=== PATIENT | female | born 1945 | race Caucasian/White ===

== ENCOUNTER 2020-06-20 07:25 | Day surgery (SDC) | payer MEDICARE, BC ==
[~2020-06-20] VITALS: Ht 162.6 cm; Wt 86.4 kg
--- NOTE | ~2020-06-20 | OR ---
[facility] [address] [place], [place] [address] Draft DATE OF OPERATION: 06/20/2020 SURGEON: Yamileth Rapp MD PREOPERATIVE DIAGNOSES: 1. Postmenopausal bleeding. 2. Uterovaginal prolapse. POSTOPERATIVE DIAGNOSES: 1. Postmenopausal bleeding. 2. Uterovaginal prolapse. 3. Vaginal granulation tissue. PROCEDURES: Hysteroscopy, cauterization of granulation tissue. ANESTHESIA: Spinal with IV sedation. ESTIMATED BLOOD LOSS: Minimal. DRAINS: None. INDICATIONS AND FINDINGS: The patient is a 75-year-old female, who has had uterovaginal prolapse for quite some time and had been doing well with the pessary that was having recurrent bleeding. During the course of her evaluation, she was found to have a pessary ulcer. Because of the persistence of bleeding, further evaluation was done. Ultrasound showed slightly thickened irregular endometrium and there was concern for a polyp. It was felt that further evaluation of the endometrium was needed before her bleeding could be blamed on the granulation tissue. At the time of surgery, she has significant uterovaginal prolapse. The cystocele is a grade 4. The cervix presents within 1 cm of the hymenal ring. She also has a rectocele. The endometrial cavity sounded to 8 cm. The cavity was completely atrophic. There was granulation tissue behind the cervix on the upper aspect of the vagina. DESCRIPTION OF PROCEDURE: The patient was prepped and draped in the dorsal lithotomy position. A weighted PATIENT NAME: ASHA,SOPHIE JOSE OPERATIVE REPORT DATE OF : 45 REPORT #: [id number] PHYSICIAN: YAMILETH RAPP MD PCP: PAULA RENAE PAC REPORT IS CONFIDENTIAL AND NOT TO BE RELEASED WITHOUT AUTHORIZATION [address] [address] Draft speculum was placed and the anterior lip of the cervix was visualized and grasped with a single-tooth tenaculum. Cavity was sounded to 8 cm. The endocervical canal was then dilated to #8 dilator. Following this, MyoSure device was placed. The cavity was completely atrophic and there was nothing to remove. Following this, hysteroscopy was complete. She did have granulation tissue behind the cervix on the vaginal wall and this was bleeding even during the surgery. Cautery was done and the granulation tissue treated with the cautery. The tenaculum was removed and there was no evidence of ongoing bleeding. The instruments were removed and the patient was taken to the recovery room in good condition. Yamileth Rapp MD PJW/MODL /[id number] cc: Paula Renae PA-C Copies: ~ PATIENT NAME: SOPHIE BARRY OPERATIVE REPORT DATE OF : 45 REPORT #: [id number] PHYSICIAN: YAMILETH RAPP MD PCP: PAULA RENAE PAC REPORT IS CONFIDENTIAL AND NOT TO BE RELEASED WITHOUT AUTHORIZATION
[~2020-06-20 07:25] MED LIST: ASPIR-LOW81 MG PO; ATENOLOL50 MG PO; LEVOXYL50 MCG PO; LOSARTAN POTASS25 MG PO; OSTERA TABLET1 EACH PO; PROBIOTIC1 EAC3 PO; SIMVASTATIN20 MG PO; VIT C-ROSE HIP500 MG PO
--- NOTE | 2020-06-20 09:54 | NUR ---
ICED WATER GIVEN. CALL LIGHT WITHIN REACH. PAGED.
[2020-06-20] MEDS ORDERED: HYDROCODON-ACE1 EA10 PO (10:06)
--- NOTE | 2020-06-20 10:13 | NUR ---
06/20/20 1013 Shelly Henderson 0944 PT ARRIVED IN PACU SLEEPY WITH NO C/O'S. 0930 DR AT BEDSIDE TALKING WITH PT. ALL QUESTIONS ANSWERED. 0945 SITTING UP IN BED WITH NO C/O'S. 0950 TO DS. REPORT GIVEN TO JACQUELINE.
--- NOTE | 2020-06-20 11:06 | NUR ---
ADDITIONAL WARM BLANKET GIVEN. SPOUSE AT THE BEDSIDE. CALL LIGHT WITHIN REACH.
--- NOTE | 2020-06-20 13:54 | NUR ---
LE 1230: PATIENT PUSHES HER CALL LIGHT AND ASKS TO USE THE BATHROOM. 2ND RN, KWAKU RIGGS AND MYSELF STANDBY WHILE PATIENT STANDS AND SHE DOES WELL WITH THAT. SHE AMBULATES TO THE BATHROOM AND VOIDS 300 ML CLEAR, YELLOW URINE AND AMBULATES BACK TO HER ROOM. DISCHARGE INSTRUCTIONS ARE GIVEN IN THE PRESENCE OF HER SPOUSE AND BOTH VERBALIZE UNDERSTANDING. PATIENT IS GETTING DRESSED IN THE PRESENCE OF HER SPOUSE. SHE TRANSFERS HERSELF TO THE WHEELCHAIR AND THEN TO HER PERSONAL VEHICLE AND TOLERATES THAT WELL.
== END 2020-06-20 12:40 | disposition home or self-care (01) ==
LOC: DS 07:25
PROVIDERS: ATTEND Obstetrics & Gynecology
PROC: 0U5G7ZZ Destruction of Vagina, Via Natural or Artificial Opening (ICD-10-PCS; principal; 2020-06-20 09:15)
DX: A58 Granuloma inguinale (principal); N95.0 Postmenopausal bleeding; N81.3 Complete uterovaginal prolapse; N85.8 Other specified noninflammatory disorders of uterus; N89.8 Other specified noninflammatory disorders of vagina; E78.5 Hyperlipidemia, unspecified; E03.9 Hypothyroidism, unspecified; E66.9 Obesity, unspecified; I12.9 Hypertensive chronic kidney disease with stage 1 through stage 4 chronic kidney disease, or unspecified chronic kidney disease; N18.1 Chronic kidney disease, stage 1; F32.9 Major depressive disorder, single episode, unspecified; K21.9 Gastro-esophageal reflux disease without esophagitis; R41.3 Other amnesia; Z79.82 Long term (current) use of aspirin; Z87.891 Personal history of nicotine dependence; Z88.6 Allergy status to analgesic agent; Z68.36 Body mass index [BMI] 36.0-36.9, adult
CPT/HCPCS: J2001; J2405; J2704; J2765; J3010; J7121

== ENCOUNTER 2022-07-31 07:15 | Inpatient (IN) | payer MEDICARE, BC ==
[~2022-07-31] VITALS: Ht 162.6 cm; Wt 93.2 kg
--- NOTE | ~2022-07-31 | OR ---
[facility] [address] [facility] [place], [place] [address] Draft DATE OF OPERATION: 08/20/2022 SURGEON: Yamileth Rapp MD SOCIOLOGY TEACHER: Theo Carroll MD PREOPERATIVE DIAGNOSIS: Incomplete uterovaginal prolapse. POSTOPERATIVE DIAGNOSIS: Incomplete uterovaginal prolapse. PROCEDURES: Total vaginal hysterectomy, colpocleisis, cystoscopy. ANESTHESIA: Spinal with IV sedation. ESTIMATED BLOOD LOSS: 100 mL. DRAINS: Gonzales catheter. PACKS: None. INDICATIONS AND FINDINGS: The patient is a 77-year-old female, who has had uterovaginal prolapse for quite some time. She did well using a pessary for a number of years, but recently has had more issues with abrasions as well as discomfort and the pessary coming out. At this point, she desires surgical intervention. She has not been sexually active and has no plans for this. At the time of surgery, she had a grade 4 cystocele. She had a grade 3 uterine prolapse. The tubes and ovaries appeared normal. DESCRIPTION OF PROCEDURE: The patient was prepped and draped in the dorsal lithotomy position. A weighted speculum was placed and the cervix was grasped on the anterior and posterior lips with single-tooth tenaculum. The cervix was injected with 1% lidocaine with 1:200,000 PATIENT NAME: SOPHIE BARRY JOSE OPERATIVE REPORT DATE OF : 45 REPORT #: [id number] PHYSICIAN: YAMILETH RAPP MD PCP: KURT GAVIRIA MD REPORT IS CONFIDENTIAL AND NOT TO BE RELEASED WITHOUT AUTHORIZATION [facility] [address] [place], [place] [address] Draft epinephrine to a volume of 10 mL. There was a little scarring just behind the cervix, possibly related to prior abrasions from her pessary. These were lysed. The posterior cul-de-sac was then entered sharply. The swan-neck speculum was placed into the posterior cul-de-sac. The uterosacral ligaments were grasped bilaterally with curved Z clamps, divided and suture ligated with 0 Vicryl. Following this, a knife was used to circumscribe the vaginal mucosa. The vaginal mucosa was from the cervix using sharp dissection and the bladder was pushed up anteriorly. The peritoneal reflection was then identified and this was opened sharply and the anterior cul-de-sac entered. Following this, another bite was taken on each side using the curved Z clamps, incorporating the uterine vessels. These were each divided and suture ligated with 0 Vicryl. Following this, the patient's left broad ligament pedicle could be grasped and completely clamped across with a curved Z clamp. This was divided. A free tie of 0 Vicryl followed by suture ligature of 0 Vicryl was placed. Following this, attention was directed to the right. This pedicle was much larger and two additional bites were taken using the curved Z clamps, divided and suture ligated prior to complete transection of the broad ligament. The broad ligament was clamped across using the curved Z clamps and divided. This was followed by a free tie of 0 Vicryl and then a suture ligature of 0 Vicryl. The ovaries were easily identified and were extremely small. The tubes were above this and no attempt was made to bring the tubes down given their location. Following this, the specimen was removed. The cuff was then re-examined. There was some bleeding points just below the uterine vessel areas on each side and these were controlled with [id number] sutures of 0 Vicryl. The cuff appeared hemostatic. The peritoneum was identified and was closed with a running suture of 3-0 Vicryl. The cuff itself was closed with a running locking stitch of 0 Vicryl. Following this, a colpocleisis was begun. A justice was made using the cautery at the bladder neck to avoid any dissection below that. The cystocele was grasped in the midline using Allis clamps and a knife was used to incise the vaginal mucosa. The vaginal mucosa was then from the underlying tissue with a combination of blunt and sharp dissection. This was carried out as far laterally as possible on each side. This was also carried down to the cuff. Bleeding points were controlled with cautery. The remaining pubovesical fascia was reapproximated with interrupted sutures of 0 Vicryl. This allowed for some reduction of the cystocele. The vaginal mucosa was then excised sharply as far laterally as possible. Attention was directed posteriorly and a triangle of tissue was removed from the perineal body. The vaginal mucosa was then undermined, incised in the midline to the apex of the vagina. The vaginal mucosa was from the underlying tissue with a combination of blunt and sharp dissection. Again, this was carried out as far laterally and as high as possible. There was no fascial type tissue in the perirectal area. Plication of the levator muscles was done with interrupted sutures of 0 Vicryl. A rectal examination was done, which confirmed no sutures within the rectum. The bleeding points were controlled with cautery as well as several sutures placed superficially of the 2-0 chromic. The vaginal mucosa was then excised as much as possible. There were a few small islands of tissue near the cuff PATIENT NAME: SOPHIE BARRY JOSE OPERATIVE REPORT DATE OF : 45 REPORT #: [id number] PHYSICIAN: YAMILETH RAPP MD PCP: KURT GAVIRIA MD REPORT IS CONFIDENTIAL AND NOT TO BE RELEASED WITHOUT AUTHORIZATION [facility] [address] [place], [place] [address] Draft angles and these were superficially excised as well. There was some bleeding high up in the angles which could not be easily be seen. FloSeal was placed in these angles followed by some Surgicel to aid in hemostasis. The vagina was then serially closed with superficial sutures of 2-0 Vicryl bringing the anterior and posterior portions of the vagina together. This was done near the introitus. There was a bridge of tissue both posteriorly and anteriorly, which had been intentionally left to allow for approximately 2 cm vaginal opening. The vaginal mucosa was on the perineum itself fairly high on each side to allow for lengthening the perineum. Interrupted sutures of 0 Vicryl were placed plicating the perineal muscles. The posterior fourchette was recreated at this point with a running suture of 2-0 Vicryl. The remaining vaginal mucosa both anteriorly and posteriorly was then brought together with a running suture of 2-0 Vicryl from the right to the left. The perineum itself was closed with subcuticular sutures of 3-0 Vicryl. This allowed for a long perineum. The vagina was essentially completely obliterated other than remaining 2 cm band. There was no evidence of any ongoing bleeding. The procedure was then terminated. Cystoscopy was done which confirmed no injury to the bladder and both ureteral orifices were seen to be squirting clear fluorescein stained urine. All sponge and needle counts were correct. She tolerated the procedure well and was taken to the recovery room in good condition. Yamileth Rapp MD PJW/MODL /[id number] Copies: ~ PATIENT NAME: SOPHIE BARRY JOSE OPERATIVE REPORT DATE OF : 45 REPORT #: [id number] PHYSICIAN: YAMILETH RAPP MD PCP: KURT GAVIRIA MD REPORT IS CONFIDENTIAL AND NOT TO BE RELEASED WITHOUT AUTHORIZATION
[~2022-07-31 07:15] MED LIST changes: +HYDROCODON-ACE1 EA10 PO
[2022-08-11] MEDS ORDERED: WOMEN'S 50 PLU1 EACH PO (15:27)
[2022-08-11] MEDS ORDERED: ELDERBERRY IMM1 EACH PO (15:27)
[2022-08-11] MEDS ORDERED: OSTERA TABLET1 EACH PO (15:27)
[2022-08-11 15:39] VITALS: BP 140/81
--- NOTE | 2022-08-11 18:27 | EKG ---
[facility] [address] [facility] [place] [address] Signed Normal sinus rhythm Normal ECG No previous ECGs available Confirmed by Chico Mobley MD () on 08/11/2022 6:27:29 PM Electronically Signed By: CHICO MOBLEY MD 08/11/22 182 PATIENT NAME: SOPHIE BARRY JOSE Electrocardiogram DATE OF : 45 PHYSICIAN: CHICO MOBLEY MD REPORT #: [id number] REPORT IS CONFIDENTIAL AND NOT TO BE RELEASED WITHOUT AUTHORIZATION
[2022-08-19] MEDS ORDERED: PEPCID40 MG PO (12:08)
[2022-08-19] MEDS ORDERED: MULTI VITAMIN1 EACH PO (12:08)
[2022-08-19] MEDS ORDERED: PROBIOTIC250 MG PO (12:08)
[2022-08-19] MEDS ORDERED: DOXEPIN HCL10 MG PO (12:09)
[2022-08-19] MEDS ORDERED: BAYER CHEWABLE81 MG PO (12:09)
[2022-08-19] MEDS ORDERED: COZAAR100 MG PO (12:10)
[2022-08-20] VITALS (7 sets, daily range): BP systolic 114–164; BP diastolic 50–81
--- NOTE | 2022-08-20 10:31 | NUR ---
08/20/22 Ashleigh1 Antonia Keyes 1025-PATIENT ARRIVED TO PACU ON RA RR EVEN. PATIENT REACTIVE TO VERBAL STIMULI OPENING EYES REMAINS VERY DROWSY DENIES PAIN OR NAUSEA. SB. IVF INFUSING TO LEFT HAND. JAUN PAD TO VAGINA NO DRAINAGE. SPINAL LEVEL AT L1 CAN WIGGLE TOES A LITTLE. PATIENT DOZES BACK TO SLEEP.
--- NOTE | 2022-08-20 11:00 | NUR ---
Pt arrives to MS room 123. Report received. Pt states no pain or needs, drowsy, on RA. Gonzales cath in place, bright yellow urine draining. Samantha pad examined, small amount bloody drainage noted. arrives at bedside. CPOX in place, SCDs on. Oriented to room/unit/call light.
--- NOTE | 2022-08-20 11:35 | NUR ---
IVF infusing WNL. Assessment complete. Pt resting in bed with eyes closed, on RA. States no pain or needs. at bedside. Ice water provided.
--- NOTE | 2022-08-20 12:00 | NUR ---
Post op vitals taken, stable. Warm blankets provided to patient. She denies pain or needs at this time, at bedside, call light in reach.
--- NOTE | 2022-08-20 13:05 | NUR ---
Post op vitals taken, pt resting in bed, taking sips of water. Denies pain or needs. On room air, stable condition.
--- NOTE | 2022-08-20 13:22 | NUR ---
SPOKE TO PATIENT ABOUT THE DISCHARGE PLAN. PATIENT PLANS TO GO HOME WITH HER .PATIENT HAS FRIENDS AND FAMILY THAT ARE AVAILABLE TO HELP IF NEEDED. PATIENT CAN DO HER OWN ADLS.PATIENT DOES NOT USE DME.PATIENT CAN AFFORD HOUSING AND MEALS.PATIENT HOPES SHE GOES HOME TOMORROW. PATIENT'S IS BEDSIDE AND AVAILABLE TO DRIVE PATIENT HOME WHEN NEEDED. PATIENT INSTRUCTED TO LET FOUNDRY ENGINEER KNOW IF THERE ARE ANY CONCERNS OR ISSUES ABOUT THE DISCHARGE PLAN.
--- NOTE | 2022-08-20 13:31 | NUR ---
PT TAKEN TO OR FOR SURGERY-CONNECTED WITH RAMONA IN WAITING AREA. HE FEELS CONFIDENT IN HER CARE, WILL REMAIN FOR POST OP VISIT WITH GAVE ENCOURAGEMENT AND SUPPORT. WILL FOLLOW
--- NOTE | 2022-08-20 14:00 | NUR ---
Post op VS Complete. pt resting in bed, VSS. A+O. On room air. Encouraged to dangle at bedside, pt states feeling slightly dizzy, made plan to attempt later. Pt sips water, states no pain, no n/v. Robin pad changed and robin care complete, small amount bloody drainage. Gonzales catheter intact and draining WNL. SCDS in place. Pt states no needs. call light in reach.
--- NOTE | 2022-08-20 14:31 | NUR ---
PT RESTING IN BED-ALERT AND ORIENTED. PT EXPRESSED GREAT CONFIDENCE IN DR MCINTYRE AND [facility] STAFF. HAD GOOD VISIT, HER RAMONA HAS LEFT FOR THE AFTERNOON. G. POST LEFT AND PT REQUESTED PRAYER. GAVE BLESSING, WILL FOLLOW
[2022-08-20] MEDS ORDERED: LOSARTAN POTAS100 MG PO (15:00)
[2022-08-20] MEDS ORDERED: LEVOTHYROXINE125 MCG PO (15:00)
[2022-08-20] MEDS ORDERED: SIMVASTATIN40 MG PO (15:00)
[2022-08-20] MEDS ORDERED: DONEPEZIL HCL10 MG PO (15:03)
--- NOTE | 2022-08-20 18:44 | NUR ---
Pt able to dangle at bedside, stand at bedside for a few minutes and lay back down. IVF infusing WNL. New robin pad in place. Gonzales cath draining WNL. Pt denies pain or needs. Stat lock applied as patient moving frequently in bed. CPOX in place, SCDs.
--- NOTE | 2022-08-20 18:46 | NUR ---
PT POST OP TLH TODAY. VSS, A+O, ON ROOM AIR. HELLER CATH. SMALL AMOUNT VAGINAL BLEEDING, JAUN CARE PRN. SAT/STOOD BRIEFLY AT BEDSIDE. CALLS APPROPRIATELY.
--- NOTE | 2022-08-20 19:33 | NUR ---
BEDSIDE REPORT RECEIVED FROM DANIA RN, PT AWAKE AND ALERT, SIDE RAILS UP X 2, NEW LR BAG OF IVF HUNG AND INFUSING WELL AT 125ML/HR, PT C/O SURGICAL PAIN IN PERINEAL AREA, PLAN TO CALL DR MCINTYRE AFTER ASSESSMENT COMPLETED.
--- NOTE | 2022-08-20 20:00 | NUR ---
PT AWAKE AND ALERT, VS STABLE, ASSESSMENT COMPLETED, I/O DONE, PT DESIRES PAIN MEDICATION BUT DECLINES MORPHINE, STATES SHE WOULD LIKE TO TRY TYLENOL, PLAN TO CALL DR MCINTYRE TO ASK FOR ORDERS, HELLER PATENT DRAINING YELLOW URINE, EMPTIED FOR 75 MLS, PERICARE GIVEN AND PERIPAD CHANGED FOR DARK RED DRAINAGE. FILLING UP HALF OF PERIPAD, IV PATENT, SITE INTACT, SCDS IN PLACE AND TURNED ON, SIDE RAILS UP X 4 AND BED ALARM ON.
--- NOTE | 2022-08-20 20:12 | NUR ---
TC TO DR MCINTYRE, UPDATED ON PT'S DESIRE TO TAKE TYLENOL INSTEAD OF MORPHINE FOR PAIN, ORDERS RECEIVED FOR TYLENOL 1000MG EVERY 8 HOURS SCHEDULED AROUND THE CLOCK. MD UPDATED ON I/O. PLAN TO MONITOR OUT PUT AT THIS TIME, NO NEW FLUID ORDERS.
--- NOTE | 2022-08-20 20:26 | NUR ---
PT MEDICATED WITH TYLENOL PER ORDER, PT DENIES OTHER NEEDS, ATTEMPTING TO REST.
--- NOTE | 2022-08-20 22:05 | NUR ---
IV ALARM, TUBING ADJUSTED AND INFUSING WELL, SITE INTACT. PT WITHOUT REQUESTS.
--- NOTE | 2022-08-20 22:45 | NUR ---
PT RESTING QUIETLY WITH EYES CLOSED.
--- NOTE | 2022-08-21 00:05 | NUR ---
PT AWAKE, DENIES COMPLAINTS, WITHOUT C/O PAIN AT THIS TIME.
[2022-08-21 02:10] VITALS: BP 97/57
--- NOTE | 2022-08-21 02:10 | NUR ---
PT RESTING QUIETLY, AWAKENS EASILY, VS COMPLETED, BP NOTED TO BE 97/57 WITH STABLE HR OF 60, HELLER OUTPUT 350ML, TOLERATING PO FLUIDS, PERIPAD CHANGED FOR SMALL AMOUNT DK RED DRAINAGE, PERICARE GIVEN.
--- NOTE | 2022-08-21 04:50 | NUR ---
PT ASSISTED UP TO BSC, PT FELT URGENCY TO HAVE BM, PT HAD LARGE SOFT BM, SLIGHTLY DIZZY UPON ARISING FROM BED BUT THIS SUBSIDED, RN REMAINS AT BEDSIDE, PT BACK TO BED, ATTEMPTING TO REST, WITHOUT COMPLAINTS.
[2022-08-21 05:00] VITALS: BP 135/49
--- NOTE | 2022-08-21 05:00 | NUR ---
PT ATTEMPTING TO GET UP TO BSC, BED ALARM GOING OFF, RN TO BEDSIDE AND ASSISTED PT UP TO BSC, PT HAD MOD SIZE SOFT BROWN BM, PERICARE DONE PER PT WITH RN ASSIST, SMALL DK RED DRAINAGE ON PERIPAD, BACK TO BED, VS STABLE, RT TYLENOL GIVEN PER ORDER. ASSESSMENT COMPLETED.
--- NOTE | 2022-08-21 07:07 | NUR ---
Report from Shirley Lee RN. Patient resting in bed with eyes closed. Respirations even and unlabored. Call light in reach, bed rails up X2. Spouse in room, at bedside. Allowed to rest at this time.
--- NOTE | 2022-08-21 08:16 | NUR ---
IV FLUIDS DC'D, IV SALINE LOCKED. HELLER DC'D. INSTRUCTED TO CALL TO GET UP. EDUCATED ON POST VOID RESIDUALS Q VOID. INSTRUCTED TO CALL PRIOR TO GETTING OUT OF BED. SPOUSE AT BEDSIDE. ASSESSMENT COMPLETED. DENIES PAIN AND DIZZINESS AT THIS TIME.
[2022-08-21] MEDS ORDERED: MEMANTINE HCL5 MG PO (09:53)
[2022-08-21] MEDS ORDERED: TUMS200 MG PO (09:54)
[2022-08-21 10:18] VITALS: BP 120/44
[2022-08-21] MEDS ORDERED: IRON325 M1 PO (10:39)
[2022-08-21] MEDS ORDERED: PRESERVISION A1 EAC3 PO (10:39)
[2022-08-21] MEDS ORDERED: VITAMIN C500 M1 PO (10:39)
[2022-08-21] MEDS ORDERED: PROBIOTIC1 EAC2 PO (10:40)
--- NOTE | 2022-08-21 10:40 | NUR ---
MED REC COMPLETE
--- NOTE | 2022-08-21 10:45 | NUR ---
Spoke with Barby and her spouse. She denies needs. Both state Dr. Rapp will see them later and determine if she can discharge. No change in CM plan to dc to home when cleared medically.
[2022-08-21 13:39] VITALS: BP 132/46
--- NOTE | 2022-08-21 13:59 | NUR ---
PT ALERT, ORIENTED AND VISITING WITH RAMONA IN . PT FEELS GOOD NO NEEDS OF ISSUES. VERY PLEASED WITH HER CARE. GAVE ENCOURAGEMENT, PT PLANS TO DC LATER TODAY. GAVE BLESSING WILL FOLLOW
[2022-08-21] MEDS ORDERED: SENOKOT-S TABL1 EACH PO (17:38)
--- NOTE | 2022-08-22 16:33 | PATH ---
[facility] [address], [place] [address] Signed SPECIMEN(S): A UTERUS AND CERVIS SPECIMEN SOURCE: A. UTERUS AND CERVIS CLINICAL HISTORY: Incomplete uterovaginal prolapse. FINAL PATHOLOGIC DIAGNOSIS: Uterus, hysterectomy: - Inactive endometrium; no hyperplasia or neoplasia identified. - Leiomyomas. - Cervix with no significant pathologic changes. BRP:cml:C2NR MICROSCOPIC EXAMINATION: Histologic sections of all submitted blocks are examined by light microscopy. These findings, together with the gross examination, support the pathologic diagnosis. GROSS DESCRIPTION: The specimen, labeled and designated "Kate Pascual " and designated on the requisition "uterus and cervix," is received in formalin and consists of 55 gram uterus and cervix, which is 2.7 x 2.9 x 7.4 cm (cornu-cornu x anterior-posterior x fundus-ectocervix). The serosal surface is pink-red and smooth with areas of red discoloration. The ectocervical mucosa is pale pink and wrinkled. Serial sectioning of the cervix fails to demonstrate any gross abnormalities. The triangular endometrial cavity is lined by pink and finely granular endometrium with areas of pale pink nodularity that has an average thickness of 0.1 cm. Sectioning through the uterus reveals a pink, moderately trabeculated myometrium multiple white-shaikh, well-circumscribed intramural and subserosal nodules that measure up to 1.5 cm in greatest dimension. Foot Worker sections are submitted in four cassettes. Cassette Summary: (A1) cervix (A2-A3) uterine wall (A4) intramural and subserosal nodules FB (under the direct supervision of a pathologist) PATIENT NAME: SOPHIE PASCUAL PATHOLOGY DATE OF : 45 REPORT #: [id number] PHYSICIAN: RONALD ALEXANDRA PCP: KURT GAVIRIA MD REPORT IS CONFIDENTIAL AND NOT TO BE RELEASED WITHOUT AUTHORIZATION [facility] [address] [place] [address] Signed The Gross Description was prepared using a voice recognition system. The report was reviewed for accuracy; however, sound-alike word errors, addition and/or deletions may occur. If there is any question about this report, please contact Client Services. PERFORMING LABORATORY: The technical component was performed by [employer] [employer] [address] (CLIA# [id number]). Professional interpretation was performed by [facility], [address] [address] (CLIA# [id number]). Diagnostician: Riley Darby MD Pathologist Electronically Signed 08/22/2022 Copies: ~ PATIENT NAME: SOPHIE PASCUAL PATHOLOGY DATE OF : 45 REPORT #: [id number] PHYSICIAN: [facility] [employer] [facility] PCP: KURT GAVIRIA MD REPORT IS CONFIDENTIAL AND NOT TO BE RELEASED WITHOUT AUTHORIZATION
== END 2022-08-21 18:08 | disposition home or self-care (01) | DRG 743 ==
LOC: DSVR 08-20 05:52 → MS 08-20 07:30
PROVIDERS: ADMIT Obstetrics & Gynecology; ATTEND Obstetrics & Gynecology
PROC: 0UT97ZZ Resection of Uterus, Via Natural or Artificial Opening (ICD-10-PCS; principal; 2022-08-20 07:30)
PROC: 0ULG7ZZ Occlusion of Vagina, Via Natural or Artificial Opening (ICD-10-PCS; 2022-08-20 07:30)
PROC: 0TJB8ZZ Inspection of Bladder, Via Natural or Artificial Opening Endoscopic (ICD-10-PCS; 2022-08-20 07:30)
DX: N81.2 Incomplete uterovaginal prolapse (principal); G43.909 Migraine, unspecified, not intractable, without status migrainosus; K21.9 Gastro-esophageal reflux disease without esophagitis; N18.1 Chronic kidney disease, stage 1; E78.5 Hyperlipidemia, unspecified; M15.0 Primary generalized (osteo)arthritis; N39.3 Stress incontinence (female) (male); E03.9 Hypothyroidism, unspecified; E66.01 Morbid (severe) obesity due to excess calories; Z68.33 Body mass index [BMI] 33.0-33.9, adult; Z98.49 Cataract extraction status, unspecified eye; Z98.890 Other specified postprocedural states; Z90.89 Acquired absence of other organs; Z79.82 Long term (current) use of aspirin; Z79.899 Other long term (current) drug therapy
CPT/HCPCS: 00840; 36415; 80048; 80053; 85025; 88305; 93005; 93010; A9270; J0690; J1644; J2001; J2250; J2274; J2405; J2704; J7121